=== PATIENT | female | born 1990 | race Hispanic/Latino ===

== ENCOUNTER 2022-10-31 08:28 | Observation (INO) | payer SELFPAY ==
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
[2022-10-31] MEDS ORDERED: PROMETHAZINE INJ 25 MG/ML AMP ONE (09:04)
[2022-10-31] MEDS ORDERED: NA CHLORIDE 0.9% 1,000 ML ONE ×2 (09:05→11:21)
[2022-10-31] MEDS ORDERED: NA CHLORIDE 0.9% 250 ML ONE (09:05)
[2022-10-31 09:12] LABS: Absolute Lymphocytes (CBC) 0.4 K/uL (0.7-4.9); Hematocrit 39.4 % (36.0-45.0); Lymphocytes % 3.2 % (15.3-44.8); MCV 84.8 fL (80-100); MPV 7.8 fL (7.6-11.3); Platelets 310 thou/uL (152-406); RBC Red Blood Cell Count 4.64 M/uL (3.86-4.86)
[2022-10-31] MEDS ORDERED: FAMOTIDINE 20 MG/2 ML VIAL IV ONE (09:17)
[2022-10-31 09:29] LABS: Albumin 4.5 g/dL (3.4-5.0); Potassium 3.3 mEq/L (3.5-5.1); Protein, Total 8.7 g/dL (6.4-8.2)
[2022-10-31 11:09] LABS: BETA HYDROXYBUTYRATE 1.77 mmol/L (0.02-0.27)
--- NOTE | 2022-10-31 12:02 | RAD REPORT ---
EXAM DESCRIPTION: CTAbdomen Pelvis W Contrast - 10/31/2022 11:54 am CLINICAL HISTORY: ABD PAIN COMPARISON: No comparisons TECHNIQUE: CT of the abdomen and pelvis was performed. All CT scans are performed using dose optimization technique as appropriate and may include automated exposure control or mA/KV adjustment according to patient size. FINDINGS: Lower chest: No acute abnormality. Liver: No acute abnormality or suspicious lesions. Biliary: No biliary ductal dilatation. Stomach: No significant focal abnormality. Duodenum: No significant focal abnormality. Pancreas: No significant abnormality. Spleen: No significant abnormality. Adrenal: No suspicious lesions. Kidney/ureter: No hydronephrosis. No renal calculi. Retroperitoneum: No retroperitoneal adenopathy. Vascular: No aneurysm. Bowel: Normal appendix. Mild diffuse colonic wall thickening.. Peritoneum: No ascites or free air. Bladder: Grossly unremarkable. Reproductive: No adnexal masses. Bones: No acute fracture. Other: n/a IMPRESSION: Mild diffuse colonic wall thickening likely reflecting a colitis. Normal appendix .
[2022-10-31 12:47] LABS: Blood Morphology Comment NOT SEEN (NOT SEEN); Platelet Estimate ADEQ; White Blood Cell Scan OK (OK)
[2022-10-31] MEDS ORDERED: CIPROFLOXACIN 400mg IV 400 MG/200 ML BAG IV ONE (13:00)
--- NOTE | 2022-10-31 13:03 | EDPHYS ---
Physician Documentation [facility] [place] Name: Gauri Champion Age: 31 yrs Sex: Female : 1990 Arrival Date: 10/31/2022 Time: 08:28 Bed 6 Private MD: ED Physician Hedy Garner HPI: 10/31 08:51 This 31 yrs old Female presents to ER via Ambulatory with complaints of snw Nausea/Vomiting. 08:51 The patient presents to the emergency department with nausea, vomiting, diarrhea. snw Onset: The symptoms/episode began/occurred suddenly, 1 day(s) ago, and became persistent. Possible causes: unknown. Associated signs and symptoms: Pertinent positives: anorexia, diarrhea, nausea, vomiting. Severity of symptoms: At their worst the symptoms were moderate severe. It is unknown whether or not the patient has had similar symptoms in the past. The patient has not recently seen a physician. Historical: - Allergies: 08:37 No Known Allergies; hb - Home Meds: 08:37 None [Active]; hb - PMHx: 08:37 None; hb - PSHx: 08:37 None; hb - Immunization history:: Adult Immunizations up to date. - Social history:: Smoking status: Patient/guardian denies using tobacco. ROS: 08:52 Constitutional: Negative for fever, chills, and weight loss, Eyes: Negative for injury, snw pain, redness, and discharge, ENT: Negative for injury, pain, and discharge, Neck: Negative for injury, pain, and swelling, Cardiovascular: Negative for chest pain, palpitations, and edema, Respiratory: Negative for shortness of breath, cough, wheezing, and pleuritic chest pain, Back: Negative for injury and pain, : Negative for injury, bleeding, discharge, and swelling, MS/Extremity: Negative for injury and deformity, Skin: Negative for injury, rash, and discoloration, Neuro: Negative for headache, weakness, numbness, tingling, and seizure, Psych: Negative for depression, anxiety, suicide ideation, homicidal ideation, and hallucinations. 08:52 Abdomen/GI: Positive for nausea, vomiting, and diarrhea. Exam: 08:48 Constitutional: This is a well developed, thin, frail patient who is awake, alert, and snw in no acute distress. Head/Face: Normocephalic, atraumatic. Eyes: Pupils equal round and reactive to light, extra-ocular motions intact. Lids and lashes normal. Conjunctiva and sclera are non-icteric and not injected. Cornea within normal limits. Periorbital areas with no swelling, redness, or edema. ENT: Nares patent. No nasal discharge, no septal abnormalities noted. Tympanic membranes are normal and external auditory canals are clear. Oropharynx with no redness, swelling, or masses, exudates, or evidence of obstruction, uvula midline. Mucous membranes moist. Neck: Trachea midline, no thyromegaly or masses palpated, and no cervical lymphadenopathy. Supple, full range of motion without nuchal rigidity, or vertebral point tenderness. No Meningismus. Chest/axilla: Normal chest wall appearance and motion. Nontender with no deformity. No lesions are appreciated. Cardiovascular: Regular rate and rhythm with a normal S1 and S2. No gallops, murmurs, or rubs. Normal PMI, no JVD. No pulse deficits. Respiratory: Lungs have equal breath sounds bilaterally, clear to auscultation and percussion. No rales, rhonchi or wheezes noted. No increased work of breathing, no retractions or nasal flaring. 08:48 Back: No spinal tenderness. No costovertebral tenderness. Full range of motion. Skin: Warm, dry with normal turgor. Normal color with no rashes, no lesions, and no evidence of cellulitis. MS/ Extremity: Pulses equal, no cyanosis. Neurovascular intact. Full, normal range of motion. Neuro: Awake and alert, GCS 15, oriented to person, place, time, and situation. Cranial nerves II-XII grossly intact. Motor strength 5/5 in all extremities. Sensory grossly intact. Cerebellar exam normal. Normal gait. Psych: Awake, alert, with orientation to person, place and time. Behavior, mood, and affect are within normal limits. 08:48 Abdomen/GI: Inspection: abdomen appears normal, Bowel sounds: diminished, Palpation: moderate abdominal tenderness, in all quadrants. Vital Signs: 08:36 BP 140 / 75; Pulse 72; Resp 16; Temp 97.6; Pulse Ox 95% on R/A; Weight 52.16 kg; Height hb 5 ft. 4 in. ; Pain 7/10; 09:22 BP 135 / 83; Pulse 83; Resp 14; Pulse Ox 100% ; ko1 09:56 BP 131 / 82; Pulse 95; Resp 18; Pulse Ox 99% ; ko1 10:34 BP 136 / 73; Pulse 92; Resp 18; Pulse Ox 100% ; ko1 12:37 BP 142 / 81; Pulse 82; Resp 16; Pulse Ox 99% ; ko1 17:49 BP 159 / 91; Pulse 92; Resp 18; Pulse Ox 98% ; ko1 08:36 Body Mass Index 19.74 (52.16 kg, 162.56 cm) hb 08:36 Pain Scale: Adult hb MDM: 08:39 Patient medically screened. snw 08:52 Differential diagnosis: Nonspecific abd pain, gastritis, cholecystitis, pancreatitis, snw viral gastroenteritis, . Data reviewed: vital signs, nurses notes. 12:59 I considered the following discharge prescriptions or medication management in the [facility] emergency department Medications were administered in the Emergency Department. See MAR. Counseling: I had a detailed discussion with the patient and/or guardian regarding the historical points, exam findings, and any diagnostic results supporting the discharge/admit diagnosis, the presence of at least one elevated blood pressure reading (>120/80) during this emergency department visit, lab results, radiology results, the need for further work-up and treatment in the hospital. Response to treatment: There is no appreciated change of the patient's symptoms at this time. ED course: Pt continues dry heaving, unable to discharge, will speak with hospitalist. 13:03 Management of patient was discussed with the following: Hospitalist: Dr. Dickson. [facility] 10/31 08:39 Order name: CBC with Diff; Complete Time: 12:48 [facility] 10/31 08:39 Order name: CMP; Complete Time: 11:17 snw 10/31 08:39 Order name: Lipase; Complete Time: 11:17 [facility] 10/31 08:39 Order name: Test, Urine [facility] 10/31 08:39 Order name: Urinalysis w/ reflexes [facility] 10/31 09:33 Order name: CBC Smear Scan; Complete Time: 12:48 EDMS 10/31 10:49 Order name: Add On-Lab [facility] 10/31 10:51 Order name: Test, Serum; Complete Time: 11:36 bp 10/31 10:57 Order name: BETA HYDROXYBUTYRATE; Complete Time: 11:17 EDMS 10/31 13:32 Order name: Thyroid Stimulating Hormone EDMS 10/31 13:32 Order name: Basic Metabolic Panel EDMS 10/31 13:32 Order name: Basic Metabolic Panel EDMS 10/31 13:32 Order name: CBC with Automated Diff EDMS 10/31 13:32 Order name: CBC with Automated Diff EDMS 10/31 13:32 Order name: Magnesium EDMS 10/31 13:32 Order name: Magnesium EDMS 10/31 13:32 Order name: Phosphorus EDMS 10/31 13:32 Order name: Phosphorus EDMS 10/31 13:43 Order name: UDS snw 10/31 10:45 Order name: CT Abd/Pelvis - IV Contrast Only; Complete Time: 12:09 snw 10/31 13:32 Order name: Clear Liquid EDMS 10/31 08:39 Order name: IV Saline Lock; Complete Time: 09:07 snw 10/31 08:39 Order name: Labs collected and sent; Complete Time: 09:06 snw Administered Medications: 08:55 Drug: NS 0.9% IV 250 ml Route: IV; Rate: bolus; Site: right antecubital; ko1 09:15 Follow up: IV Status: Completed infusion; IV Intake: 250ml ko1 08:57 Drug: Promethazine IVP 12.5 mg Route: IVP; Site: right antecubital; ko1 09:57 Follow up: Response: No adverse reaction; Nausea is decreased ko1 08:59 Drug: Famotidine IVP 20 mg Route: IVP; Site: right antecubital; ko1 09:57 Follow up: Response: No adverse reaction ko1 09:10 Drug: NS 0.9% IV 1000 ml Route: IV; Rate: 1 bolus; Site: right antecubital; ko1 09:57 Follow up: IV Status: Completed infusion; IV Intake: 1000ml ko1 10:55 Drug: NS 0.9% IV 1000 ml Route: IV; Rate: 1 bolus; Site: right forearm; bp 12:51 Drug: Ciprofloxacin IVPB 400 mg Volume: 200 ml; Route: IVPB; Infused Over: 60 mins; ko1 Site: right antecubital; Disposition Summary: 10/31/22 13:03 Hospitalization Ordered Hospitalization Status: Inpatient Admission snw Provider: Aron Dickson snw Condition: Stable snw Problem: new snw Symptoms: are unchanged snw Bed/Room Type: Standard snw Location: Telemetry/MedSurg (Inpatient)(10/31/22 17:22) yarely Room Assignment: 429(10/31/22 17:22) yarely Diagnosis - Intractable N/V snw - Infectious gastroenteritis and colitis, unspecified snw - Volume depletion, unspecified snw Forms: - Medication Reconciliation Form snw - SBAR form snw - Leadership Thank You Letter snw Signatures: Dispatcher [employer] EDMS Fe Sweet, POLYSOMNOGRAPHY TECHNICIAN-C POLYSOMNOGRAPHY TECHNICIAN-Csnw Yaneth Dan, RN RN Troy Blair RN RN ja1 Faustino Gilliland RN RN bp Liberty Lazcano RN RN ko1 Corrections: (The following items were deleted from the chart) 13:49 13:03 Telemetry/MedSurg (Inpatient) snw bp 13:49 13:03 snw bp 17:22 13:49 BR ER HOLD bp [facility] 17:22 13:49 ERHOLD- bp [facility]
--- NOTE | 2022-10-31 13:03 | ER ---
Nurse's Notes [facility] [place] Name: Gauri Champion Age: 31 yrs Sex: Female : 1990 Arrival Date: 10/31/2022 Time: 08:28 Bed 6 Private MD: Diagnosis: Intractable N/V;Infectious gastroenteritis and colitis, unspecified;Volume depletion, unspecified Presentation: 10/31 08:36 Chief complaint: N/V/D and RUQ pain since yesterday morning. Not tolerating fluids. hb Coronavirus screen: Client presents with at least one sign or symptom that may indicate coronavirus-19. Provider contacted for isolation considerations. Ebola Screen: No symptoms or risks identified at this time. Initial Sepsis Screen: Does the patient meet any 2 criteria? No. Patient's initial sepsis screen is negative. Does the patient have a suspected source of infection? No. Patient's initial sepsis screen is negative. Risk Assessment: Do you want to hurt yourself or someone else? Patient reports no desire to harm self or others. Onset of symptoms was October 30, 2022. 08:36 Method Of Arrival: Ambulatory hb 08:36 Acuity: YULI 3 hb Historical: - Allergies: 08:37 No Known Allergies; hb - Home Meds: 08:37 None [Active]; hb - PMHx: 08:37 None; hb - PSHx: 08:37 None; hb - Immunization history:: Adult Immunizations up to date. - Social history:: Smoking status: Patient/guardian denies using tobacco. Screenin:00 [facility] ED Fall Risk Assessment (Adult) History of falling in the last 3 months, ko1 including since admission No falls in past 3 months (0 pts) Confusion or Disorientation No (0 pts) Intoxicated or Sedated No (0 pts) Impaired Gait No (0 pts) Mobility Assist Device Used No (0 pt) Altered Elimination No (0 pt) Score/Fall Risk Level 0 - 2 = Low Risk Oriented to surroundings, Maintained a safe environment, Educated pt \T\ family on fall prevention, incl call for assistance when getting out of bed, Assessed \T\ reinforced patient's understanding of fall precautions, Provided non-skid footwear, Hourly rounding (assess needs \T\ fall precautionary measures) done, Used ambulatory aids as needed (educated on \T\ assisted with), Used gait belt as appropriate. Abuse screen: Denies threats or abuse. Denies injuries from another. Nutritional screening: No deficits noted. Tuberculosis screening: No symptoms or risk factors identified. Assessment: 09:00 General: Appears ill, Behavior is calm, cooperative, appropriate for age. Pain: ko1 Complains of pain in abdomen. Neuro: No deficits noted. Cardiovascular: No deficits noted. Respiratory: No deficits noted. GI: Pt is actively vomiting bile, clear fluid. : No deficits noted. EENT: No deficits noted. Derm: No deficits noted. Musculoskeletal: No deficits noted. Vital Signs: 08:36 BP 140 / 75; Pulse 72; Resp 16; Temp 97.6; Pulse Ox 95% on R/A; Weight 52.16 kg; Height hb 5 ft. 4 in. ; Pain 7/10; 09:22 BP 135 / 83; Pulse 83; Resp 14; Pulse Ox 100% ; ko1 09:56 BP 131 / 82; Pulse 95; Resp 18; Pulse Ox 99% ; ko1 10:34 BP 136 / 73; Pulse 92; Resp 18; Pulse Ox 100% ; ko1 12:37 BP 142 / 81; Pulse 82; Resp 16; Pulse Ox 99% ; ko1 17:49 BP 159 / 91; Pulse 92; Resp 18; Pulse Ox 98% ; ko1 08:36 Body Mass Index 19.74 (52.16 kg, 162.56 cm) hb 08:36 Pain Scale: Adult hb ED Course: 08:30 Patient arrived in ED. ts1 08:33 Liberty Lazcano, ALEXEI is Primary Nurse. ko1 08:37 Triage completed. hb 08:38 Fe Sweet FNP-C is PHCP. snw 08:38 Hedy Garner MD is Attending Physician. snw 08:38 Arm band placed on. hb 09:00 Patient has correct armband on for positive identification. Bed in low position. Call ko1 light in reach. Side rails up X 1. Provided Education on: NA. Pulse ox on. NIBP on. Door closed. Noise minimized. Lights dimmed. Warm blanket given. 09:07 Inserted saline lock: 20 gauge in right antecubital area, using aseptic technique. bp Blood collected. 09:11 CBC with Diff Sent. ko1 09:11 CMP Sent. ko1 09:11 Lipase Sent. ko1 10:51 Add On-Lab Sent. bp 10:54 Test, Serum Sent. hb 11:56 CT Abd/Pelvis - IV Contrast Only In Process Unspecified. EDMS 12:38 No provider procedures requiring assistance completed. ko1 13:02 Aron Dickson MD is Hospitalizing Provider. snw 16:34 Patient admitted, IV remains in place. bp Administered Medications: 08:55 Drug: NS 0.9% IV 250 ml Route: IV; Rate: bolus; Site: right antecubital; ko1 09:15 Follow up: IV Status: Completed infusion; IV Intake: 250ml ko1 08:57 Drug: Promethazine IVP 12.5 mg Route: IVP; Site: right antecubital; ko1 09:57 Follow up: Response: No adverse reaction; Nausea is decreased ko1 08:59 Drug: Famotidine IVP 20 mg Route: IVP; Site: right antecubital; ko1 09:57 Follow up: Response: No adverse reaction ko1 09:10 Drug: NS 0.9% IV 1000 ml Route: IV; Rate: 1 bolus; Site: right antecubital; ko1 09:57 Follow up: IV Status: Completed infusion; IV Intake: 1000ml ko1 10:55 Drug: NS 0.9% IV 1000 ml Route: IV; Rate: 1 bolus; Site: right forearm; bp 12:51 Drug: Ciprofloxacin IVPB 400 mg Volume: 200 ml; Route: IVPB; Infused Over: 60 mins; ko1 Site: right antecubital; Medication: 12:38 VIS not applicable for this client. ko1 Intake: 09:15 IV: 250ml; Total: 250ml. ko1 09:57 IV: 1000ml; Total: 1250ml. ko1 Outcome: 13:03 Decision to Hospitalize by Provider. snw 16:34 Admitted to ER Hold. Please see [facility] for further documentation. bp 16:34 Condition: stable 16:34 Instructed on the need for admit. 18:03 Patient left the ED. ko1 Signatures: Dispatcher [employer] EDMS Fe Sweet FNP-C FNP-CsnYaneth Montilla RN RN hb Peltier, Brian, RN RN bp Oliver, Kathy, RN RN ko1 Sonya Warren PAS PAS ts1
--- NOTE | 2022-10-31 13:28 | P.HP ---
Certification for Inpatient Patient admitted to: Observation With expected LOS: <2 Midnights Patient will require the following post-hospital care: None Practitioner: I am a practitioner with admitting privileges, knowledge of patient current condition, hospital course, and medical plan of care. Services: Services provided to patient in accordance with Admission requirements found in Title 42 Section 412.3 of the Code of Federal Regulations Patient History Date of Service: 10/31/22 Reason for admission: Colitis History of Present Illness: Ms. Gauri Champion is a 31 year old female who has no reported past medical history who presents to the [facility] Emergency Department for abdominal pain, nausea, and vomiting. She reports that, over the last 2 days, she has been experiencing progressively worsening abdominal pain, nausea, vomiting and diarrhea. She states that prior to this episode, she drank 5-7 shots of alcohol on 10/29/2022. She admits to using marijuana, but reports her last use being on 10/27/2022. She states that her abdominal pain is generalized and non-radiating. She describes the pain as sharp and grades it a 7/10 in severity. She has tried taking Pept-Bismol, without alleviation of her symptoms. On review of systems, she denies any fevers, chills, headaches, dizziness, syncope, weakness, chest pain, palpitations, shortness of breath, wheezing, cough, hematochezia, melena, dysuria, hematuria, myalgia, or any other symptoms. She presented to the Emergency Department for further evaluation. Upon presentation, her vital signs were stable. Her laboratory studies were notable for a WBC count of 13,500, a potassium of 3.3, a glucose of 190, and a beta-hydroxybutyrate of 1.77. Her CT abdomen/pelvis revealed, ""mild diffuse colonic wall thickening likely reflecting a colitis. Normal appendix." In the Emergency Department, she was given famotidine, promethazine, ciprofloxacin, and 2.25 L of Normal Saline. She was admitted to the General Internal Medicine service for further evaluation. Allergies No Known Allergies Allergy (Unverified 10/31/22 13:35) Home medications list reviewed: Yes Home Medications: NK [No Home Meds] 10/31/22 - Past Medical/Surgical History Past Medical History: Patient denies medical history Past Surgical History: Patient denies surgical history - Family History Family History: Reviewed- Non-Contributory - Social History Smoking Status: Never smoker Alcohol use: Yes CD- Drugs: Yes Review of Systems General: Unremarkable Eyes: Unremarkable ENT: Unremarkable Respiratory: Unremarkable Cardiovascular: Unremarkable Gastrointestinal: Nausea, Vomiting, Abdominal Pain, Diarrhea Genitourinary: Unremarkable Musculoskeletal: Unremarkable Integumentary: Unremarkable Neurological: Unremarkable Lymphatics: Unremarkable Physical Examination - Vital Signs Temperature: 97.6 F Blood Pressure: 142/81 Pulse: 82 Respirations: 16 Pulse Ox (%): 100 - Physical Exam General: Alert, In no apparent distress, Oriented x3 HEENT: Atraumatic, Mucous membr. moist/pink, Sclerae nonicteric Neck: JVD not distended Respiratory: Clear to auscultation bilaterally, Normal air movement Cardiovascular: No edema, Regular rate/rhythm, Normal S1 S2, No gallops, No rubs, No murmurs Gastrointestinal: Normal bowel sounds, Soft and benign, Non-distended, No tenderness, No rebound, No guarding Musculoskeletal: No clubbing Integumentary: No rashes Neurological: Normal speech, Normal affect - Studies Laboratory Data (last 24 hrs) 10/31/22 10/31/22 09:05 09:05 WBC 13.50 H Hgb 12.8 Hct 39.4 Plt Count 310 Sodium 139 Potassium 3.3 L BUN 18 Creatinine 1.16 H Glucose 190 H Total Bilirubin 1.0 AST 26 ALT 30 Alkaline Phosphatase 70 Lipase 11 L Assessment and Plan - Plan # Mild Diffuse Colitis with likely superimposed Cannabis Hyperemesis Syndrome # Likely Starvation Ketosis due to Vomiting/Diarrhea - Does not meet sepsis criteria - Denies daily alcohol consumption - Bicarbonate within normal limits - Evaluation: - Bicarb: 28, BHB: 1.77 - Urinalysis = pending - Urine = negative - CT abdomen/pelvis = "mild diffuse colonic wall thickening likely reflecting a colitis. Normal appendix." - Management plan: - Started Lactated Ringers' @ 100 mL/hr - Continue ciprofloxacin + metronidazole - Clear Liquid Diet - advance as tolerated - Counseled on substance cessation - If symptoms are not improving, consider Gastroenterology consultation # Hypokalemia due to Vomiting/Diarrhea - Ordered magnesium level - Replace electrolytes as needed # Hyperglycemia - No known history of diabetes mellitus - Ordered Hgb A1c Aron Dickson M.D. Discharge Plan: Home Plan to discharge in: 24 Hours - Advance Directives Does patient have a Living Will: No Does patient have a Durable POA for Healthcare: No - Code Status/Comfort Care Code Status: Full Code
[2022-10-31] MEDS ORDERED: ONDANSETRON 4 MG/2 ML VIAL IV PRN (15:13)
[2022-10-31] MEDS ORDERED: MORPHINE 2 MG/ML SYR IV PRN (15:15)
[2022-10-31] MEDS: Ringers Lactate 1,000 ML IV SCH (16:00)
[2022-10-31] MEDS ORDERED: Ringers Lactate 1,000 ML IV ONE (16:39)
[2022-10-31] MEDS ORDERED: METRONIDAZOLE 500mg IVPB 500 MG/100 ML BAG IV ONE (16:39)
[2022-10-31 16:41] VITALS: BMI 19.7
[2022-10-31] MEDS: METRONIDAZOLE 500mg IVPB 500 MG/100 ML BAG IV SCH (17:00)
[2022-10-31] MEDS ORDERED: ONDANSETRON 4 MG/2 ML VIAL ONE (18:21)
--- NOTE | 2022-10-31 19:02 | P.PN ---
Date of Service: 11/01/22 Subjective: ROS: 10 point ROS as noted above, otherwise negative Physical Exam: Gen: Alert, Oriented, NAD HEENT: normal conjunctiva, sclera anicteric CV: regular rate & rhythm, no edema Pulm: non-labored respirations on room air Abd: soft, nontender, nondistended MSK: no joint tenderness Integumentary: No rashes Neuro: normal speech, normal affect Problem List: 1. Mild Diffuse Colitis with likely superimposed Cannabis Hyperemesis Syndrome 2. Likely Starvation Ketosis due to Vomiting/Diarrhea 3. Hypokalemia due to Vomiting/Diarrhea 4. Hyperglycemia PLAN CT abdomen/pelvis: mild diffuse colonic wall thickening likely reflecting a colitis. Normal appendix. Started Lactated Ringers' @ 100 mL/hr Continue empiric ciprofloxacin / flagyl Clear Liquid Diet - advance as tolerated Counseled on substance cessation If symptoms are not improving, consider Gastroenterology consultation check magnesium level Replace electrolytes as needed No known history of diabetes mellitus Hgb A1c Ordered VTE: Lovenox Code: Full Dispo: Home
[2022-10-31 20:20] LABS: Specific Gravity > 1.030 (1.005-1.030)
[2022-10-31 20:28] LABS: Barbiturates NEGATIVE (NEGATIVE); Benzodiazepines NEGATIVE (NEGATIVE); Cocaine NEGATIVE (NEGATIVE); METHAMPHETAM NEGATIVE (NEGATIVE); Methadone NEGATIVE (NEGATIVE); Opiates NEGATIVE (NEGATIVE); Phencyclidine NEGATIVE (NEGATIVE); THC Cannibis POSITIVE (NEGATIVE); Urine Bacteria None Seen /HPF (<20); Urine Bilirubin NEGATIVE (Negative); Urine Blood 2+ (Negative); Urine Clarity Clear (Clear); Urine Color Light-Yellow (Yellow); Urine Glucose TRACE (Negative); Urine Mucus Slight /HPF (None Seen); Urine Protein 1+ (Negative); Urine Urobilinogen Normal (Normal)
[2022-10-31 20:29] LABS: Specific Gravity > 1.030 (1.005-1.030)
[2022-10-31] MEDS: Ciprofloxacin 200mg IV 200 MG/100 ML IV.SOLN. IV SCH (20:48)
[2022-11-01 00:13] VITALS: O2SAT 100
[2022-11-01] MEDS: METRONIDAZOLE 500mg IVPB 500 MG/100 ML BAG IV SCH ×2 (00:46→08:59)
[2022-11-01] MEDS: Ringers Lactate 1,000 ML IV SCH ×2 (02:07→12:00)
[2022-11-01 06:39] LABS: Absolute Lymphocytes (CBC) 1.5 K/uL (0.7-4.9); Hematocrit 34.2 % (36.0-45.0); Lymphocytes % 17.2 % (15.3-44.8); MCV 85.7 fL (80-100); Platelets 223 thou/uL (152-406); RBC Red Blood Cell Count 3.99 M/uL (3.86-4.86)
[2022-11-01 06:52] LABS: Phosphorus 2.1 mg/dL (2.5-4.9); Potassium 3.6 mEq/L (3.5-5.1)
[2022-11-01] MEDS: Ciprofloxacin 200mg IV 200 MG/100 ML IV.SOLN. IV SCH (08:56)
[2022-11-01] MEDS: ENOXAPARIN 40 MG/0.4 ML SQ SCH ×2 (09:00→09:01)
[2022-11-01 12:21] VITALS: BP 112/62; TEMP 99
== END 2022-11-01 16:15 | disposition home or self-care (01) ==
LOC: ER 08:28 → ERHOLD 13:30 → 4TH 17:53
PROVIDERS: ADMIT Internal Medicine; ATTEND Hospitalist
DX: K52.9 Noninfective gastroenteritis and colitis, unspecified (principal); R11.2 Nausea with vomiting, unspecified; E87.6 Hypokalemia; R73.9 Hyperglycemia, unspecified; F12.90 Cannabis use, unspecified, uncomplicated
CPT/HCPCS: 36415; 74177; 80048; 80053; 80307; 81001; 81025; 82010; 83036; 83690; 83735; 84100; 84443; 84703; 85025; 96361; 96365; 96375; 99285; G0378; J0744; J1650; J2270; J2405; J2550; J7030; J7050; J7120; Q9967